=== PATIENT | male | born 1990 | race Two or more races ===

== ENCOUNTER 2023-02-28 05:13 | Emergency (ER) | payer MEDICARE, MEDICAID ==
[~2023-02-28] VITALS: Ht 160 cm; Wt 59.0 kg
[2023-02-28 05:16] VITALS: BP 142/58; PULSE 77; RESP 16; TEMP 97.5; O2SAT 98
[2023-02-28 05:40] LABS: BILIRUBIN,URINE NEGATIVE (Neg); CLARITY,URINE SLIGHTLY CLOUDY (Clear); COLOR,URINE YELLOW (Yellow); GLUCOSE, URINE NEGATIVE (Neg); KETONES,URINE NEGATIVE (Neg); NITRITES, URINE NEGATIVE (Neg); OCCULT BLOOD,URINE LARGE (Neg); PH,URINE 6.5 (4.8-8.0); PROTEIN,URINE TRACE mg/dl (Neg); UROBILINOGEN,URINE 0.2 E.U/dL (0.2-1.0)
[2023-02-28 05:42] LABS: LEUKOCYTE ESTERASE ,URINE LARGE (Neg)
[2023-02-28 05:49] LABS: UA COLLECTION TYPE CLN CATCH MIDSTREAM
[2023-02-28 05:50] LABS: MUCUS STRANDS MANY /LPF (Neg); SQUAMOUS EPITHELIAL CELL,UR NONE SEEN /LPF (FEW)
[2023-02-28 05:53] LABS: WBC,URINE TNTC /HPF (0-4)
[2023-02-28 05:54] LABS: BACTERIA,URINE 2+ /HPF (Neg)
[2023-02-28] MEDS ORDERED: CefTRIAXone 1000mg IM Kit (w/lidocaine diluent) IM ONE (06:40)
[2023-02-28] MEDS ORDERED: CEPH-585 PO (06:41)
[2023-02-28] MEDS ORDERED: acetaminophen 325mg tablet PO ONE (06:50)
== END 2023-02-28 07:22 | disposition home or self-care (01) ==
LOC: ER 05:14
DX: N39.0 Urinary tract infection, site not specified (principal); R50.9 Fever, unspecified
CPT/HCPCS: 81001; 87077; 87088; 87186; 96372; 99283; J0696